=== PATIENT | female | born 1950 | race Caucasian/White ===

== ENCOUNTER 2017-05-08 17:46 | Emergency (ER) | payer MEDICARE, OTHER ==
--- NOTE | 2017-05-08 18:41 | ER Document Report ---
ED GI/ - General Mode of Arrival: Ambulatory Information source: Patient - HPI Patient complains to provider of: Abdominal pain, Other - drainage from umbilicus Onset: Just prior to arrival Recently seen / treated by doctor: Yes <JOHNNIE DE PAZ - Last Filed: 05/08/17 23:49> <LUIS SHAY - Last Filed: 05/09/17 03:52> - General Chief Complaint: Drainage Stated Complaint: DISCHARGE FROM [employer] Time Seen by Provider: 05/08/17 18:18 Notes: Patient is a 67-year-old female s/p hysterectomy secondary to stage IV endometrial cancer who presents to the emergency department today with complaints of abdominal pain with associated drainage out of her umbilicus. Patient states the drainage was clear with a greenish tinge. Patient states she also feels generally tired but this is consistent with her baseline after being on chemotherapy. Patient states her hysterectomy was on November 26. Patient denies any fevers, history of AR, or history of CVA. (JOHNNIE DE PAZ) - Related Data Allergies/Adverse Reactions: azithromycin Allergy (Verified 05/08/17 18:58) erythromycin base Allergy (Verified 05/08/17 18:58) Penicillins Adverse Reaction (Verified 05/08/17 18:58) Home Medications: Current Home Medications Atorvastatin Calcium 40 mg PO DAILY 05/08/17 [History] Ibuprofen [Motrin 600 mg Tablet] 600 mg PO Q6H PRN 05/08/17 [History] Levothyroxine Sodium [Synthroid] 50 mcg PO DAILY 05/08/17 [History] Metformin HCl 850 mg PO BID 05/08/17 [History] Ondansetron [Zofran Odt] 8 mg PO PRN PRN 05/08/17 [History] Prochlorperazine Maleate [Compazine] 10 mg PO Q6H PRN 05/08/17 [History] Pyridoxine HCl [Vitamin B-6] 100 mg PO DAILY 05/08/17 [History] Past Medical History - General Information source: Patient - Social History Smoking Status: Never Smoker Cigarette use (# per day): No Frequency of alcohol use: None Drug Abuse: None Lives with: Family Family History: Reviewed & Not Pertinent - Past Medical History Cardiac Medical History: Reports: Hx Hypercholesterolemia Past Surgical History: Reports: Hx Section, Hx Gynecologic Surgery, Hx Hysterectomy <JOHNNIE DE PAZ - Last Filed: 05/08/17 23:49> <LUIS SHAY - Last Filed: 05/09/17 03:52> Other: History of endometrial cancer (SAMIRA DE PAZON) Review of Systems - Review of Systems Constitutional: denies: Fever EENT: No symptoms reported Cardiovascular: No symptoms reported Respiratory: No symptoms reported Gastrointestinal: See HPI, Abdominal pain - with drainage from umbilicus Genitourinary: No symptoms reported Female Genitourinary: No symptoms reported Musculoskeletal: No symptoms reported Skin: No symptoms reported Hematologic/Lymphatic: No symptoms reported Neurological/Psychological: No symptoms reported -: Yes All other systems reviewed and negative <BALDEV,JOHNNIE - Last Filed: 05/08/17 23:49> Physical Exam <BALDEVJOHNNIE - Last Filed: 05/08/17 23:49> <LUIS SHAY - Last Filed: 05/09/17 03:52> - Vital signs Vitals: Temp Pulse Resp BP Pulse Ox 98.8 F 115 H 22 H 102/54 L 94 05/08/17 17:47 05/08/17 17:47 05/08/17 17:47 05/08/17 17:47 05/08/17 17:47 - Notes Notes: PHYSICAL EXAM GENERAL: Alert, interacts well. Chronically ill appearing, hair is very thin consistent with history of malignancy. HEAD: Normocephalic, atraumatic. EYES: Pupils equal, round, and reactive to light. Extraocular movements intact. ENT: Oral mucosa moist, tongue midline. NECK: Full range of motion. Supple. Trachea midline. LUNGS: Clear to auscultation bilaterally, no wheezes, rales, or rhonchi. No respiratory distress. HEART: Mildly tachycardic, regular rhythm. 1/6 systolic ejection murmur. No murmurs, gallops, or rubs. ABDOMEN: Opening over the inferior aspect of the umbilicus with erythema extending inferiorly 7cm and laterally to the left 3cm. Area beneath erythema is firm. Opening is draining a green liquid with some white chunks. Pushing on the firm area expresses this drainage. Infection appears to be draining out of the superior portion of the healed surgical incision. There is a crusty area around the edges of the open area. The open area probes 5cm deep straight into the abdomen, probes 4cm inferiorly but stopped due to pain, extends 2cm laterally to the left but does not extend laterally to the right. Moderate tenderness with palpation in the RLQ, mild tenderness in the LLQ. Non- distended. Bowel sounds present in all 4 quadrants. EXTREMITIES: Moves all 4 extremities spontaneously. No edema, radial and dorsalis pedis pulses 2/4 bilaterally. No cyanosis. NEUROLOGICAL: Alert and oriented x3. Normal speech. PSYCH: Normal affect, normal mood. SKIN: See abdomen exam (JOHNNIE DE PAZ) Course - Laboratory Result Diagrams: 05/08/17 18:11 05/08/17 18:11 <JOHNNIE DE PAZ - Last Filed: 05/08/17 23:49> - Laboratory Result Diagrams: 05/08/17 18:11 05/08/17 18:11 <LUIS SHAY - Last Filed: 05/09/17 03:52> - Re-evaluation Re-evalutation: 05/08/17 23:50 Dr. Streeter accepts patient for transfer at [facility]. Requests flagyl be added. Waiting on bed. (JOHNNIE DE PAZ) 05/09/17 00:27 CBC has a left shift without leukocytosis, markedly anemic with hemoglobin 5.8, previous hemoglobin on the first was 8.4, coags slightly elevated, patient is on Eliquis, VBG grossly unremarkable, CMP shows low potassium at 2.5 low magnesium at 1.0, patient was repleted with K riders and magnesium rider, lactic acid elevated at 3.3, patient was hydrated and treated with Rocephin, vancomycin and Flagyl, repeat lactic acid is now 1.3, CT scan of the abdomen and pelvis shows sigmoid colon related fistula a connecting to left lower quadrant, right lower quadrant and umbilical abscess. This patient was discussed with Dr. Candelaria our surgeon on-call who feels that the patient will be better treated by her [employer]GEON at [facility], I discussed with the patient as well as Dr. Hodge at [facility] who all agree with the plan to transfer the patient there for specialty care and continuity of care. Blood culture and wound cultures have all been ordered. Patient has also been transfused 3 units of PRBCs. 05/09/17 03:28 Patient was rechecked at 02:45 just prior to transfer out of the department. Patient is stable, blood pressure is stable, patient denies any pain. Third unit of blood is infusing. (LUIS SHAY) - Vital Signs Vital signs: Temp Pulse Resp BP Pulse Ox 98.1 F 82 13 116/81 98 05/09/17 02:45 05/09/17 01:20 05/09/17 02:40 05/09/17 02:40 05/09/17 02:40 - Laboratory Laboratory results interpreted by me: 05/08/17 05/08/17 05/08/17 18:11 18:11 18:11 RBC 2.24 L Hgb 5.8 L Hct 18.1 L MCH 25.9 L RDW 18.5 H Band Neutrophils % 8 H Lymphocytes % (Manual) 12 L Monocytes % (Manual) 15 H Metamyelocytes % 1 H PT 17.8 H VBG pH Sodium 136.0 L Potassium 2.5 L* Chloride 96 L BUN 22 H Est GFR (Non-Af Amer) 53 L Glucose 161 H Lactic Acid Calcium 7.6 L Magnesium Direct Bilirubin 0.6 H Total Protein 6.0 L Albumin 2.7 L Crossmatch 05/08/17 05/08/17 05/08/17 18:11 18:11 18:11 RBC Hgb Hct MCH RDW Band Neutrophils % Lymphocytes % (Manual) Monocytes % (Manual) Metamyelocytes % PT VBG pH 7.47 H Sodium Potassium Chloride BUN Est GFR (Non-Af Amer) Glucose Lactic Acid 3.3 H Calcium Magnesium 1.0 L* Direct Bilirubin Total Protein Albumin Crossmatch 05/08/17 20:15 RBC Hgb Hct MCH RDW Band Neutrophils % Lymphocytes % (Manual) Monocytes % (Manual) Metamyelocytes % PT VBG pH Sodium Potassium Chloride BUN Est GFR (Non-Af Amer) Glucose Lactic Acid Calcium Magnesium Direct Bilirubin Total Protein Albumin Crossmatch See Detail Critical Care Note <JOHNNIE DE PAZ - Last Filed: 05/08/17 23:49> - Critical Care Note Total time excluding time spent on procedures (mins): 45 <LUIS SHAY - Last Filed: 05/09/17 03:52> - Critical Care Note Comments: Treating sepsis, treating electrolyte abnormalities, charting, reviewing records , discussing with consultants and arranging transfer. (LUIS SHAY) Discharge <JOHNNIE DE PAZ - Last Filed: 05/08/17 23:49> <LUIS SHAY - Last Filed: 05/09/17 03:52> - Discharge Clinical Impression: Colonic fistula, Intra-abdominal abscess, Hypokalemia, Hypomagnesemia, Endometrial cancer Anemia Qualifiers: Anemia type: iron deficiency Iron deficiency anemia type: chronic blood loss Qualified Code(s): D50.0 - Iron deficiency anemia secondary to blood loss ( chronic) Sepsis Qualifiers: Sepsis type: sepsis due to unspecified organism Qualified Code(s): A41.9 - Sepsis, unspecified organism Condition: Serious Disposition: [facility] Referrals: ALY LANGLEY MD [Primary Care Provider] - Follow up as needed Scribe Attestation: 05/09/17 03:52 I personally performed the services described in the documentation, reviewed and edited the documentation which was dictated to the scribe in my presence, and it accurately records my words and actions. (LUIS SHAY) Scribe Documentation - Scribe Written by Andrey:: Andrey Hernandez, 05/08/[id number] acting as scribe for :: Carlton <JOHNNIE DE PAZ - Last Filed: 05/08/17 23:49>
[2017-05-08 18:42] LABS: HEMATOCRIT 18.1 % (36.0-47.0); HGB HCT DIFFERENCE -0.7; MEAN CORPUSCULAR HEMOGLOBIN 25.9 pg (27.0-33.4); MEAN CORPUSCULAR VOLUME 81 fl (80-97); RED BLOOD COUNT 2.24 10^6/uL (3.72-5.28); RED CELL DISTRIBUTION WIDTH 18.5 % (11.5-14.0); WHITE BLOOD COUNT 6.5 10^3/uL (4.0-10.5)
[2017-05-08 18:44] LABS: VENOUS BLOOD BASE EXCESS 3.5 mmol/L; VENOUS BLOOD HCO3 27.4 mmol/L (20-32); VENOUS BLOOD PCO2 38.2 mmHg (35-63); VENOUS BLOOD PH 7.47 (7.30-7.42)
[2017-05-08 18:45] LABS: PROTHROMBIN TIME 17.8 SEC (11.4-15.4)
[2017-05-08 19:02] LABS: ALANINE AMINOTRANSFERASE 25 U/L (9-52); ALBUMIN 2.7 g/dL (3.5-5.0); ALKALINE PHOSPHATASE 82 U/L (38-126); ANION GAP 12 (5-19); ASPARTATE AMINO TRANSFERASE 17 U/L (14-36); BILIRUBIN,DIRECT 0.6 mg/dL (0.0-0.4); BLOOD UREA NITROGEN 22 mg/dL (7-20); CALCIUM 7.6 mg/dL (8.4-10.2); CARBON DIOXIDE 28 mmol/L (22-30); CHLORIDE 96 mmol/L (98-107); CREATININE RESULT 1.05 mg/dL (0.52-1.25); GLUCOSE 161 mg/dL (75-110)
[2017-05-08 19:04] LABS: POTASSIUM 2.5 mmol/L (3.6-5.0)
[2017-05-08] MEDS ORDERED: RINGERS SOLUTION,LACTATED 1,000 ML IV ONE (19:26)
[2017-05-08] MEDS ORDERED: NORMAL SALINE 1000 ML 1,000 ML IV ONE (19:26)
[2017-05-08] MEDS ORDERED: VANCOMYCIN HCL INJ 1000 MG VIAL IV ONE (19:27)
[2017-05-08] MEDS ORDERED: CEFTRIAXONE 1 GM/D5W RTU 1 GM/50 ML RTUPB IV ONE (19:27)
[2017-05-08 19:31] LABS: HEMOGLOBIN 5.8 g/dL (12.0-15.5)
[2017-05-08] MEDS ORDERED: NORMAL SALINE 250 ML IV PRN ×2 (19:31→23:20)
[2017-05-08 19:35] LABS: BAND NEUTROPHILS % (MANUAL) 8 % (3-5); BASOPHILS % (MANUAL) 1 % (0-2); EOSINOPHILS % (MANUAL) 0 % (0-6); LYMPHOCYTES % (MANUAL) 12 % (13-45); TOTAL CELLS COUNTED 100
[2017-05-08 19:39] LABS: ANISOCYTOSIS 2+; HYPOCHROMASIA 1+; OVALOCYTES SLIGHT; PLATELET CLUMPS PRESENT; POIKILOCYTOSIS 1+; POLYCHROMASIA 1+; SCHISTOCYTES SLIGHT; TEAR DROP CELLS SLIGHT; TOXIC GRANULATION 2+
[2017-05-08] MEDS: POTASSI CL 20 MEQ/50 ML RIDER 20 MEQ/50 ML RTUPB IV SCH ×2 (20:34→22:35)
[2017-05-08] MEDS: MAGNESIUM SULFATE/D5W 1 GM/100 ML RTUPB IV SCH (22:26)
[2017-05-08] MEDS ORDERED: METRONIDAZOLE 500 MG/NS RTU 100 ML IV ONE (23:45)
[2017-05-09] MEDS: MAGNESIUM SULFATE/D5W 1 GM/100 ML RTUPB IV SCH (00:10)
[2017-05-09] MEDS ORDERED: RINGERS SOLUTION,LACTATED 1,000 ML IV ONE (00:27)
[2017-05-09 02:47] VITALS: BP 116/81
--- NOTE | 2017-05-09 08:16 | EKG REPORT ---
SEVERITY:- BORDERLINE ECG - SINUS TACHYCARDIA WITH IRREGULAR RATEDUE TO PACS WITH BLOCK 61-115 BORDERLINE R WAVE PROGRESSION, ANTERIOR LEADS DIFFUSE NONSPECIFIC ST-T CHANGES : Confirmed by: Jeet Leon MD 09-May-2017 08:15:24
--- NOTE | 2017-05-12 16:57 | RADIOLOGY REPORT (SQ) ---
EXAM DESCRIPTION: CT ABD/PELVIS WITH IV ORAL COMPLETED DATE/TIME: 05/08/2017 10:02 pm REASON FOR STUDY: periumbilical cellulitis with drainage, abd tender COMPARISON: None. TECHNIQUE: CT scan of the abdomen and pelvis performed with intravenous and oral contrast using elina doni scanning technique with dynamic intravenous contrast injection. Images reviewed with lung, soft t issue, and bone windows. Reconstructed coronal and sagittal MPR images reviewed. Delayed images for e valuation of the urinary system also acquired and evaluated. All images stored on PACS. CONTRAST TYPE AND DOSE: Not provided. RENAL FUNCTION: Creatinine 1.05 LIMITATIONS: None. FINDINGS: LUNG BASES: Mild basilar scar. LIVER: Normal size. No masses or dilated ducts. SPLEEN: Normal size. No focal lesions. PANCREAS: No masses. No significant calcifications. No adjacent inflammation or peripancreatic fluid collections. Pancreatic duct not dilated. GALLBLADDER: No masses. No stones. No gallbladder wall thickening or pericholecystic fluid. ADRENAL GLANDS: No significant masses or asymmetry. RIGHT KIDNEY AND URETER: No solid mass. No calculi or urinary tract obstruction. Small calculi may be obscured by IV contrast. LEFT KIDNEY AND URETER: No solid mass. No calculi or urinary tract obstruction. Small calculi may be obscured by IV contrast. AORTA AND VESSELS: No aneurysm. No dissection. Renal arteries, SMA, celiac without stenosis. RETROPERITONEUM: No upper retroperitoneal pathology. See findings below. BOWEL AND PERITONEAL CAVITY: There appears to be 8 linear fistula tract from the sigmoid colon tracki ng towards the left lower quadrant. Superficial to the left iliopsoas muscle within the iliac fossa, there is a fluid and gas collection which measures at least 7 cm transverse dimension by 14 cm crani ocaudal. Additional inflammatory changes with probable abscess/ fistula in the right lower quadrant tracking towards the umbilicus. This measures greater than 7 cm transverse dimension and directly ab uts the bladder dome, which is thickened. No clear gas in the bladder to suggest fistula to the blad marifer. Ill-defined fluid and gas within the umbilicus is present, but no measurable drainable fluid. Mild stranding regionally in the pelvis. Presumably, findings are all related to diverticulitis or i nflammatory bowel disease with secondary fistula and abscess formation. [place]ay images are saved in PACs . APPENDIX: Normal. PELVIS: As above. ABDOMINAL WALL: No masses. No hernias. BONY STRUCTURES: No significant or acute findings. OTHER: No other significant finding. IMPRESSION: 1. Fistulae related to the sigmoid colon. There is associated left iliac fossa abscess as well as abscess in the right lower quadrant extending to abut the bladder dome and presumed commu nication with the umbilicus. Findings are likely related to inflammatory bowel disease or diverticul itis. Preliminary report called to Dr. Tapia in the ER shortly after the study. TECHNICAL DOCUMENTATION: JOB ID: [id number]
== END 2017-05-09 02:45 | disposition short-term general hospital (02) ==
LOC: ER 17:46
PROC: 30233N1 Transfusion of Nonautologous Red Blood Cells into Peripheral Vein, Percutaneous Approach (ICD-10-PCS; principal; 2017-05-08)
DX: K63.2 Fistula of intestine (principal); D50.0 Iron deficiency anemia secondary to blood loss (chronic); A41.9 Sepsis, unspecified organism; E87.6 Hypokalemia; E83.42 Hypomagnesemia; C54.1 Malignant neoplasm of endometrium
CPT/HCPCS: 93005; 99291; 96361; 96365; 96366; 96367; 96368; 86900; 86901; 36415; 87040; 87070; 87205; 36430 ×2; 86850; 83735; 85025; 85610; 87075; 87077; 80053; 87186; 86920; 82803; 83605; 74177; 93010; P9016; J3475 ×2; J3480; J7030; J7120 ×2; J3370; J0696